=== PATIENT | male | born 2000 | race Two or more races ===

== ENCOUNTER 2024-06-11 18:38 | Emergency (ER) | payer OTHER ==
[~2024-06-11] VITALS: Ht 167.6 cm; Wt 95.3 kg
[2024-06-11 18:38] VITALS: BP 119/75; PULSE 78; RESP 16; TEMP 98.4
[2024-06-11 19:00] VITALS: O2SAT 96
[2024-06-11] MEDS ORDERED: AMOX875T4 PO (19:41)
== END 2024-06-11 20:23 | disposition home or self-care (01) ==
LOC: ER 18:47
DX: S50.812A Abrasion of left forearm, initial encounter (principal); W54.0XXA Bitten by dog, initial encounter; Y93.89 Activity, other specified; Y92.89 Other specified places as the place of occurrence of the external cause; Y99.8 Other external cause status